=== PATIENT | female | born 1975 | race Two or more races ===

== ENCOUNTER → 2025-01-26 | Outpatient (CLI) | payer OTHER, SELFPAY ==
--- NOTE | 2025-01-26 08:30 | XR_ITS ---
Examination: Screening digital mammography, bilateral Computer aided detection 3-D breast Tomosynthesis, bilateral Date and time of exam: January 26, 2025 0907 hours Compared to mammograms dating to January 10, 2021 Indication: Screening Technique: Nonmagnified MLO, CC views of the breasts to been obtained, reconstructed from 3-D Tomosynthesis images. R2 computer aided detection program utilized for evaluation of suspicious masses and/or abnormal calcifications. 3-D Tomosynthesis images obtained. Findings: Scattered areas of fibroglandular density Benign calcifications No interval suspicious masses Impression: BI-RADS Category 1: Negative study Return to yearly follow-up mammography
== END | disposition home or self-care (01) ==
LOC: CDIM 08:44
PROVIDERS: Referring Provider Nurse Practitioner Family; Visit Provider Nurse Practitioner Family
DX: Z12.31 Encounter for screening mammogram for malignant neoplasm of breast (principal); R92.313 Mammographic fatty tissue density, bilateral breasts; R92.1 Mammographic calcification found on diagnostic imaging of breast
CPT/HCPCS: 77063; 77067

== ENCOUNTER 2025-05-25 07:52 | Emergency (ER) | payer OTHER, SELFPAY ==
[2025-05-25 08:09] VITALS: BP 136/96; PULSE 82; RESP 16; TEMP 36.7; O2SAT 99
[2025-05-25 08:10] VITALS: BMI 26.4
[2025-05-25] MEDS: CLINDAMYCIN PHOS INJ 150 MG/ML VIAL 6 ML 600 MG IM (08:42)
--- NOTE | 2025-05-25 08:53 | EDNOTE_ITS ---
<Statement entered by Cat Bearden MD - 06/04/25 06:29> As co-signing physician, I was present and available for consult prn. I concur with the plan and care as documented by the midlevel provider. ED Dental RME/HPI General Chief complaint: Dental/Oral/Throat Stated complaint: SWELLING R) JAW Time Seen by Provider: 05/25/25 07:56 Arrival date/time: 05/25/25 07:52 50-year-old female presents to the emergency department of complaint of right- sided dental pain patient reports that she has dental infection. Patient ports no fever nausea or vomiting no headache dizziness weakness. Limitations: no limitations Related Data Previous Rx's ?Medication ?Instructions ?Recorded polyethylene glycol 3350 17 17 gm PO QDAY PRN constipa tion 08/29/17 gram/dose oral powder (Miralax) #119 grams magnesium citrate 148 ml PO BID #296 mL mineral oil 118 ml ND QDAY PRN constipat ion 08/30/17 #135 mL clindamycin HCl 150 mg capsule 450 mg (3 x 150 mg) PO TID 7 days 05/25/25 #63 caps hydrocodone 5 mg-acetaminophen 325 1 tab PO BID PRN pa in #10 tabs 05/25/25 mg tablet ibuprofen 800 mg tablet 800 mg PO TID PRN pain #30 t abs 05/25/25 Allergies Allergy/AdvReac Type Severity Reaction Status Date / Time Penicillins Allergy Rash Verified 05/25/25 07:56 Review of Systems Review of Systems Systems Reviewed: All systems reviewed, normal except as documented Constitutional Constitutional: Reports system reviewed and no additional complaints, except as documented, Denies fever(s) and Denies headache(s) Eyes Eyes: Reports system reviewed and no additional complaints, except as documented and Denies blurry vision ENT Ears, Nose, Mouth, and Throat: Reports system reviewed and no additional complaints, except as documented, Reports dental pain, Denies headache(s), Denies nasal congestion and Denies nasal discharge Cardiovascular Cardiovascular: Reports system reviewed and no additional complaints, except as documented, Denies chest pain and Denies dyspnea Respiratory Respiratory: Reports system reviewed and no additional complaints, except as documented, Denies chest congestion, Denies cough and Denies dyspnea Gastrointestinal Gastrointestinal: Reports system reviewed and no additional complaints, except as documented and Denies abdominal pain Integumentary/Breasts Skin/Breast: Reports system reviewed and no additional complaints, except as documented and Denies rash Neurologic Neurologic: Reports system reviewed and no additional complaints, except as documented, Reports as per HPI and Denies headache(s) Past Medical History Past Medical History CARDIAC: Negative Cardiac Disorders or Congestive Heart Failure RESPIRATORY: Negative Chronic Obstructive Pulmonary Disease (COPD) or Asthma GENITOURINARY: Negative Renal Disease ENDOCRINE: Negative Diabetes Mellitus Type 1 or Diabetes Mellitus Type 2 HEMATOLOGIC: Negative Sickle Cell Disease Social History SMOKING STATUS: Never smoker ED Exam General Limitations: Present no limitations General appearance: Present alert and in no apparent distress Head Head exam: Present atraumatic Eye Eye exam: Present normal appearance, PERRL and EOMI ENT ENT exam: Present normal oropharynx and mucous membranes moist Expanded ENT Exam Teeth exam: Present dental caries, fractured tooth #, dental tenderness # and gingival swelling Neck Neck exam: Present normal inspection, full ROM and trachea midline Chest Chest inspection: Present normal inspection and symmetric chest wall rise Respiratory Respiratory exam: Present normal lung sounds bilaterally Cardiovascular Cardiovascular exam: Present regular rate, normal rhythm and normal heart sounds Abdominal Exam Abdominal exam: Present soft and normal bowel sounds Extremities Exam Extremities exam: Present normal inspection and full ROM Back Exam Back exam: Present normal inspection and full ROM Neurological Exam Neurological exam: Present alert, oriented X3 and CN II-XII intact Psychiatric Psychiatric exam: Present normal affect and normal mood Skin Skin exam: Present warm, dry, intact and normal color Course Quality Measures none Orders Category Date Time Status Clindamycin Vial [Cleocin vial] Med 05/25/25 08:25 Discontinued 600 mg IM X1 ONE Vital Signs Vital signs: Vital Signs Temperature 98.1 F 05/25/25 08:09 Pulse Rate 82 05/25/25 08:09 Respiratory Rate 16 05/25/25 08:09 Blood Pressure 136/96 H 05/25/25 08:09 Pulse Oximetry (%) 99 05/25/25 08:09 Oxygen Delivery Method Room Air 05/25/25 08:09 O2 saturation 99% room air within normal limits Dental / Oral MDM Narrative MDM Narrative:: 50-year-old female presents to the emergency department of complaint of right- sided dental pain patient reports that she has dental infection. Patient ports no fever nausea or vomiting no headache dizziness weakness. On exam patient well-appearing does not appear ill or toxic no acute distress Patient does have swelling right jaw consistent with dental infection Patient given clindamycin injection Patient discharged home with antibiotics and pain medication Patient instructured follow-up dentist to soon as possible for emergent concerns to return immediately Patient data External records reviewed:: [facility] previous records Clinical information provided by:: patient Social determinants that could affect healthcare access:: none Patient has the following chronic illnesses:: None How is presenting disease/condition affected by chronic disease/condition?: no chronic disease Evaluation data The following diagnostics were reviewed and interpreted by me:: other (specify) Lab and/or radiology exams considered but not ordered:: Considered not indicated Interpretation Summary: N/A Medications / Prescriptions Medications or Prescriptions considered but not ordered:: Given Medication administrations:: Medication Administration History Discontinued Medications Clindamycin Phosphate (Clindamycin Phos Inj 150 Mg/Ml Vial 6 Ml) 600 mg IM X1 ONE Stop: 05/25/25 08:26 Last Admin: 05/25/25 08:42 Dose: 600 mg Documented By: VL Given Consultations Consultation(s) initiated? (list below): No Diagnosis Dental Differential Diagnosis: gingival abscess, dental caries, toothache and dental abscess Most likely diagnosis given after review of the tests above:: Dental pain Admission Indicated Admission indicated?: not indicated Admission Request Was there a request for admission?: No Disposition Plan Disposition Plan: Discharge Discharge Attestation Discharge Attestation: The patient and all family members were given an opportunity to ask questions and understood the discharge instructions. Discharge instructions specifically effects, indications for sooner follow up or return to the emergency department, and the expected course of current diagnosis. Patient condition: Stable Discharge Plan Plan Patient Disposition: HOME (Self Care) Discharge Disposition comment: Stable Prescriptions/Referrals Prescriptions/Med Rec: New ibuprofen 800 mg tablet 800 mg PO TID PRN (Reason: pain) Qty: 30 0RF hydrocodone-acetaminophen 5-325 mg tablet 1 tab PO BID MDD 10 PRN (Reason: pain) Qty: 10 0RF clindamycin HCl 150 mg capsule 450 mg PO TID 7 Days Qty: 63 0RF No Action polyethylene glycol 3350 [Miralax] 17 gram/dose powder 17 gm PO QDAY PRN (Reason: constipation) Qty: 119 0RF Rx Instructions: mix in 4-8 oz of any hot/cold/room temp beverage;use immediately magnesium citrate solution 148 ml PO BID Qty: 296 0RF mineral oil enema 118 ml ND QDAY PRN (Reason: constipation) Qty: 135 0RF Problem List Clinical Impression: Dental abscess Patient/Caregiver Discharge Instructions Education Materials: Dental Abscess Additional Instructions: Please follow up with your dentist in the next 24-48hrs for any worsening symptoms return here immediately Print Language: Chadian Stand Alone Forms: [place]etta Award Info., Work/School Release, Patient Portal Info Letter PA/JAVA DESIGNER Supervising Physician PA/JAVA DESIGNER Supervising Physician: Dr. Bearden
== END 2025-05-25 08:50 | disposition home or self-care (01) ==
LOC: SERX 09:14
PROVIDERS: Emergency Provider Emergency Medicine; PCP Physician Assistant
DX: K04.7 Periapical abscess without sinus (principal)
CPT/HCPCS: 96372; 99282; J0736